=== PATIENT | male | born 1955 | race Caucasian/White ===

== ENCOUNTER 2020-01-05 07:19 | Day surgery (SDC) | payer MEDICARE, BC ==
[~2020-01-05 07:19] MED LIST: Lactated Ringers 1,000 ML IV SCH
[2020-01-05] MEDS ORDERED: Propofol 200 MG/20 ML SDV ONE ×2 (07:24→08:29)
[2020-01-05] MEDS ORDERED: Midazolam 1 MG/ML 2 ML SDV ONE (07:25)
[2020-01-05] MEDS ORDERED: fentaNYL 100 MCG/2 ML SDV ONE (07:25)
--- NOTE | 2020-01-05 07:54 | PCM.PREANE ---
Preanesthetic Assessment - Anesthesia/Transfusion/Family Hx Anesthesia History: Prior Anesthesia Without Reaction Family History of Anesthesia Reaction: No Transfusion History: No Prior Transfusion(s) - Review of Systems General: No Symptoms Pulmonary: No Symptoms Cardiovascular: No Symptoms Gastrointestinal: No Symptoms Neurological: No Symptoms Other: Reports: None - Physical Assessment Height: 5 ft 11 in Weight: 96.162 kg ASA Class: 2 Mental Status: Alert & Oriented x3 Dentition: Reports: Normal Dentition ROM/Head Extension: Full Lungs: Clear to Auscultation, Normal Respiratory Effort Cardiovascular: Regular Rate, Regular Rhythm - Allergies Allergies/Adverse Reactions: Allergies Allergy/AdvReac Type Severity Reaction Status Date / Time No Known Allergies Allergy Verified 01/05/20 07:48 - Blood Blood Available: No - Acknowledgements Anesthesia Type Planned: General Anesthesia Pt an Appropriate Candidate for the Planned Anesthesia: Yes Alternatives and Risks of Anesthesia Discussed w Pt/Guardian: Yes Pt/Guardian Understands and Agrees with Anesthesia Plan: Yes PreAnesthesia Questionnaire HEENT History: Reports: Other (See Below) Other HEENT History: wears glasses Cardiovascular History: Reports: None Respiratory History: Reports: None Gastrointestinal History: Reports: GERD Genitourinary History: Reports: None Musculoskeletal History: Reports: Back Pain, Chronic Other Musculoskeletal History: DDD Neurological History: Reports: None Psychiatric History: Reports: None Endocrine/Metabolic History: Reports: None Hematologic History: Reports: None Immunologic History: Reports: None Oncologic (Cancer) History: Reports: None Dermatologic History: Reports: None - Past Surgical History Head Surgeries/Procedures: Reports: None HEENT Surgical History: Reports: Naso-Sinus Surgery, Other (See Below) Other HEENT Surgeries/Procedures: rinoplasty Cardiovascular Surgical History: Reports: None Respiratory Surgical History: Reports: None GI Surgical History: Reports: None Male Surgical History: Reports: None Endocrine Surgical History: Reports: None Neurological Surgical History: Reports: None Musculoskeletal Surgical History: Reports: None Oncologic Surgical History: Reports: None Dermatological Surgical History: Reports: None - SUBSTANCE USE Smoking Status *Q: Never Smoker - HOME MEDS Home Medications: Home Meds Acetaminophen [Tylenol Arthritis] 2 tab PO ASDIRECTED PRN 12/30/19 [History] Cyanocobalamin (Vitamin B-12) [Cyanocobalamin Injection] 1 injection IM WEEKLY 12/30/19 [History] L.acidoph,Paracasei, B.lactis [Probiotic] 1 tab PO DAILY 12/30/19 [History] Omeprazole 20 mg PO DAILY 12/30/19 [History] - CURRENT (IN HOUSE) MEDS Current Meds: Current Medications Lactated Ringer's (Ringers, Lactated) 1,000 mls @ 125 mls/hr IV ASDIRECTED SADIQ Discontinued Medications Fentanyl (Sublimaze) Confirm Administered Dose 100 mcg .ROUTE .STK-MED ONE Stop: 01/05/20 07:26 Lidocaine HCl (Xylocaine-Mpf 1%) Confirm Administered Dose 5 ml .ROUTE .STK-MED ONE Stop: 01/05/20 07:26 Midazolam HCl (Versed 1 Mg/Ml) Confirm Administered Dose 2 mg .ROUTE .STK-MED ONE Stop: 01/05/20 07:26 Propofol (Diprivan 20 Ml) Confirm Administered Dose 200 mg .ROUTE .STK-MED ONE Stop: 01/05/20 07:25
--- NOTE | 2020-01-05 09:23 | PCM.OPNOTE ---
- General Post-Op/Procedure Note Date of Surgery/Procedure: 01/05/20 Operative Procedure(s): Esophagogastroduodenoscopy with biopsies of the stomach and distal esophagus. Colonoscopy. Pre Op Diagnosis: Chronic and progressive heartburn. Desire for colorectal cancer screening. Post-Op Diagnosis: Duodenitis. Gastritis. Hiatal hernia with distal esophagitis. Anesthesia Technique: MAC (ASA II) Primary Surgeon: Rock Mcbride Condition: Good Free Text/Narrative:: DICTATION [id number] CPT CODE [id number]
[2020-01-05] MEDS ORDERED: Lactated Ringers 1,000 ML IV SCH (09:30)
--- NOTE | 2020-01-05 11:19 | PCM48HPAN ---
Post Anesthesia Note - EVALUATION WITHIN 48HRS OF ANESTHETIC Vital Signs in Normal Range: Yes Patient Participated in Evaluation: Yes Respiratory Function Stable: Yes Airway Patent: Yes Cardiovascular Function Stable: Yes Hydration Status Stable: Yes Pain Control Satisfactory: Yes Nausea and Vomiting Control Satisfactory: Yes Mental Status Recovered: Yes Vital Signs: Last Vital Signs Temp 96.8 F L 01/05/20 09:17 Pulse 75 01/05/20 10:04 Resp 16 01/05/20 10:04 BP 119/79 01/05/20 10:04 Pulse Ox 99 01/05/20 10:04
--- NOTE | 2020-01-05 11:19 | PCM.POSTAN ---
POST ANESTHESIA ASSESSMENT - MENTAL STATUS Mental Status: Alert, Oriented - VITAL SIGNS Vital Signs: Last Vital Signs Temp 96.8 F L 01/05/20 09:17 Pulse 75 01/05/20 10:04 Resp 16 01/05/20 10:04 BP 119/79 01/05/20 10:04 Pulse Ox 99 01/05/20 10:04 - RESPIRATORY Respiratory Status: Respiratory Rate WNL, Airway Patent, O2 Saturation Stable - CARDIOVASCULAR CV Status: Pulse Rate WNL, Blood Pressure Stable - GASTROINTESTINAL GI Status: No Symptoms - POST OP HYDRATION Hydration Status: Adequate & Stable
--- NOTE | 2020-01-05 13:01 | OR ---
SURGEON: Rock Mcbride M.D. DATE OF PROCEDURE: 01/05/2020 OPERATION PERFORMED: Esophagogastroduodenoscopy with biopsy. PRIMARY SURGEON: Rock Mcbride MD ANESTHESIA: MAC. ASA CLASSIFICATION: II. PREOPERATIVE DIAGNOSIS: Chronic and progressive heartburn. POSTOPERATIVE DIAGNOSES: 1. Mild duodenitis. 2. Moderate chronic gastritis. 3. Hiatal hernia. 4. Mild distal esophagitis. DESCRIPTION OF PROCEDURE: The patient was taken to the endoscopy room and positioned on the endoscopy table in the left lateral decubitus position. Time-out was called for appropriate identification of the patient and procedure. Monitored anesthesia care was provided. The gastroscope, was inserted through the bite block into the oropharynx and advanced without difficulty through the esophagus and stomach into the duodenum where examination was now carried out in a retrograde fashion. The duodenum did show some mild inflammatory changes. No acute ulcerations or bleeding were noted. The gastroscope was withdrawn to the stomach that does show a mild to moderate chronic gastritis. Antral biopsies were obtained to look for the presence of Helicobacter pylori. The gastroscope was retroflexed to visualize the proximal stomach. No ulcerations were noted in the stomach. The patient did have a small hiatal hernia. The gastroscope was then straightened and slowly withdrawn, carefully visualizing the greater and lesser curvatures. Again, no acute ulcerations were noted. Once the gastroscope was withdrawn through the GE junction, the patient did have some changes in the lining of the mucosa with columnarization. Biopsies at approximately 35 cm, which is above the esophageal hiatus, were obtained. The remainder of the esophagus demonstrated good contractility. No mid or proximal lesions were identified. Vocal cords were visualized as the scope was withdrawn and noted to move symmetrically. Gastroscope was then removed with the patient having tolerated the procedure well. Following colonoscopy, he was taken to recovery room in stable condition. JENNIFER / KUSUM /[id number] KO
--- NOTE | 2020-01-05 13:04 | OR ---
SURGEON: Rock Mcbride M.D. DATE OF PROCEDURE: 01/05/2020 OPERATION PERFORMED: Colonoscopy. PRIMARY SURGEON: Rock Mcbride MD ANESTHESIA: MAC. ASA CLASSIFICATION: II. PREOPERATIVE DIAGNOSIS: Desire for colorectal cancer screening. POSTOPERATIVE DIAGNOSIS: No evidence of neoplasia. DESCRIPTION OF PROCEDURE: With the patient having completed upper GI endoscopy, he was maintained in the left lateral decubitus position. The colonoscope was inserted into the rectum and advanced with minimal difficulty to the cecum where the colonoscope was retroflexed to visualize the ascending colon from below. The colonoscope was then straightened. The cecum was identified by internal landmarks and external pressure. Cecum, ascending colon, hepatic flexure, transverse colon, splenic flexure, descending colon, sigmoid colon, and rectum were very well visualized. No tumors, polyps, diverticula, or angiodysplastic changes were noted anywhere in the lower gastrointestinal tract. Once the colonoscope was withdrawn to the rectum, it was retroflexed to visualize the anal orifice from above. No tumors or polyps were seen and there were no acute hemorrhoidal changes. The colonoscope was then straightened, the rectum aspirated, and the colonoscope removed. The patient tolerated the procedure well and was taken to recovery room in stable condition. JENNIFER / KUSUM /[id number]
== END 2020-01-05 10:18 | disposition home or self-care (01) ==
LOC: MW.SDS 07:19
PROVIDERS: ATTEND Surgery
DX: Z12.11 Encounter for screening for malignant neoplasm of colon (principal); Z12.12 Encounter for screening for malignant neoplasm of rectum; K29.50 Unspecified chronic gastritis without bleeding; K22.70 Barrett's esophagus without dysplasia; K20.9 Esophagitis, unspecified; K29.80 Duodenitis without bleeding; K44.9 Diaphragmatic hernia without obstruction or gangrene; M54.5 Low back pain; G89.29 Other chronic pain; Z98.890 Other specified postprocedural states; Z87.891 Personal history of nicotine dependence; Z79.899 Other long term (current) drug therapy
CPT/HCPCS: 43239; G0121; J2001; J2250; J2704; J3010; J7120; 88305; 88312

== ENCOUNTER 2023-04-27 09:03 | Day surgery (SDC) | payer MEDICARE, BC ==
[2023-04-27] MEDS ORDERED: Lidocaine 2% 5 ML SDV ONE (09:38)
[2023-04-27] MEDS ORDERED: Propofol 200 MG/20 ML SDV ONE (09:39)
[2023-04-27] MEDS ORDERED: Lactated Ringers 1,000 ML IV SCH (10:15)
== END 2023-04-27 11:20 | disposition home or self-care (01) ==
LOC: MW.SDS 09:03
PROVIDERS: ATTEND Surgery
DX: K22.70 Barrett's esophagus without dysplasia (principal); K31.89 Other diseases of stomach and duodenum; K29.50 Unspecified chronic gastritis without bleeding; M54.50 Low back pain, unspecified; G89.29 Other chronic pain; M51.36 Other intervertebral disc degeneration, lumbar region; M47.816 Spondylosis without myelopathy or radiculopathy, lumbar region; Z87.891 Personal history of nicotine dependence; Z79.899 Other long term (current) drug therapy
CPT/HCPCS: 43239; J2704; J7120; 00731; 88305; J3490